=== PATIENT | male | born 1980 | race Caucasian/White ===

== ENCOUNTER 2021-04-23 20:21 | Emergency (ER) | payer OTHER, BC ==
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
== END 2021-04-23 21:50 | disposition home or self-care (01) ==
LOC: DL.ED 20:21
DX: S16.1XXA Strain of muscle, fascia and tendon at neck level, initial encounter (principal); V89.2XXA Person injured in unspecified motor-vehicle accident, traffic, initial encounter
CPT/HCPCS: 72125; 99283; 99283-25